=== PATIENT | male | born 1955 | race Caucasian/White ===

== ENCOUNTER 2024-07-08 10:03 | Outpatient (CLI) | payer MEDICARE, SELFPAY ==
--- NOTE | 2024-07-08 10:14 | CT_ITS ---
WS: [id number] CT chest w con* [id number] HISTORY: THICKENING OF PLEURA TECHNIQUE: Axial imaging performed through the thorax. Coronal and sagittal reformats are submitted. All CT scans at [facility] use at least one of these dose optimization techniques: automated exposure control; mA and/or kV adjustment per patient size (includes targeted exams where dose is mat ched to clinical indication); or iterative reconstruction. CONTRAST: Omnipaque 350; 100 mL IV. DLP: 532.26 mGy.cm COMPARISON: None available. Lungs and central airway: Mild LEFT pleural thickening. Slightly nodular pleural thickening towards t he anterior LEFT upper thorax measures 2.6 x 0.5 cm. Additional mild pleural thickening extending pos teriorly and inferiorly. Subsegmental atelectasis and pleural thickening at the LEFT lung base. Pleura: Normal. No pleural effusion. Heart and pericardium: Normal size heart with no pericardial effusion. Mediastinum and saw: No mediastinum or hilar adenopathy. Small normal axillary lymph nodes. Vessels: Normal size aortic and pulmonary artery. No coronary artery calcifications. Chest wall and lower neck: No soft tissue masses. Upper abdomen: Incompletely visualized LEFT renal cyst. Cystic mass measures 4.3 x 4.4 cm. No adrenal mass. Osseous structures: No destructive process. CT/CT chest w con* [id number] IMPRESSION: 1. Mild LEFT pleural thickening. Largest area of pleural thickening slightly n odular measuring 2.6 x 0.5 cm towards the anterior LEFT upper thorax. 2. No pulmonary mass or nodule. 3. No pneumonia. 4. No adenopathy. 5. LEFT renal cyst.
[2024-07-08] MEDS: iohexol 350 mg/mL 500 mL Btl (per mL) IV (11:05)
[2024-07-08 11:38] LABS: Blood Urea Nitrogen 14 mg/dL (8-23); Glomerular Filtration Rate 66.2 mL/min (90-130)
== END 2024-07-08 10:04 | disposition home or self-care (01) ==
LOC: RAD 10:06
PROVIDERS: Radiology Diagnostic Radiology; PCP Family Medicine; Visit Provider Family Medicine
DX: J92.9 Pleural plaque without asbestos (principal); J98.11 Atelectasis; N28.1 Cyst of kidney, acquired
CPT/HCPCS: 71260; 82565; 84520